=== PATIENT | female | born 1980 | race Caucasian/White ===

== ENCOUNTER 2016-10-28 21:02 | Emergency (ER) | payer OTHER ==
[2016-10-28 21:11] VITALS: BP 110/66; PULSE 80; TEMP 98.1; BMI 27.9
[2016-10-28] MEDS ORDERED: SODIUM PHOSPHATE/NA BIPHOS 133 ML ENEMA PR ONE (21:58)
--- NOTE | 2016-10-28 21:59 | PDOC ---
History of Present Illness - General Chief Complaint: Constipation Stated Complaint: PAIN Time Seen by Provider: 10/28/16 21:35 - History of Present Illness Initial Comments: 10/28/16 21:56 36 year old female c/o rectal pain and hard stool unable to defecate x 2 days. patient tried exlax and milk of magnesia at home without relief. history of hemorrhoids. Past History - Past Medical History Allergies/Adverse Reactions: Allergies Allergy/AdvReac Type Severity Reaction Status Date / Time No Known Allergies Allergy Verified 10/28/16 21:07 Home Medications: Ambulatory Orders Hydrocortisone Acetate [Anusol Hc Suppository -] 25 mg RC DAILY #14 supp.rect Polyethylene Glycol 3350 [Miralax (For Daily Use) -] 17 gm PO DAILY #1 bottle Anemia: No Asthma: No Cancer: No Cardiac Disorders: No CVA: No COPD: No CHF: No Dementia: No Diabetes: No GI Disorders: No Disorders: No HTN: No Hypercholesterolemia: No Kidney Stones: Yes Liver Disease: No Seizures: No Thyroid Disease: No - Surgical History Abdominal Surgery: Yes (tubal ligation) Appendectomy: No Cardiac Surgery: No Cholecystectomy: No Lung Surgery: No Neurologic Surgery: No Orthopedic Surgery: No - Immunization History Td Vaccination: No Immunization Up to Date: No (no flu vaccine) - Psycho/Social/Smoking Cessation Hx Anxiety: No Suicidal Ideation: No Smoking Status: Yes Smoking History: Current some day smoker Have you smoked in the past 12 months: Yes Number of Cigarettes Smoked Daily: 10 If you are a former smoker, when did you quit?: 2010 Cigars Per Day: 0 Information on smoking cessation initiated: No 'Breaking Loose' booklet given: 12/29/15 Hx Alcohol Use: No Drug/Substance Use Hx: No Substance Use Type: None Hx Substance Use Treatment: No Review of Systems - Review of Systems Able to Perform ROS?: Yes Is the patient limited Japanese proficient: No ABD/GI: Yes: Constipated : Yes: Other (hemorrhoids) *Physical Exam - Vital Signs Last Vital Signs Temp Pulse Resp BP Pulse Ox 98.1 F 80 16 110/66 98 10/28/16 21:09 10/28/16 21:09 10/28/16 21:09 10/28/16 21:10/28/16 21:09 - Physical Exam General Appearance: Yes: Appropriately Dressed Gastrointestinal/Abdominal: positive: Normal Bowel Sounds, Soft. negative: Tender Rectal Exam: positive: heme negative stool, other (hard stool in rectal cavity. no external hemorrhoid noted) Extremity: positive: Normal Capillary Refill, Normal Inspection, Normal Range of Motion Integumentary: positive: Normal Color, Dry, Warm Neurologic: positive: Fully Oriented, Alert *DC/Admit/Observation/Transfer Diagnosis at time of Disposition: Constipation Qualifiers: Constipation type: slow transit constipation Qualified Code(s): K59.01 - Slow transit constipation Hemorrhoids Qualifiers: Hemorrhoid type: unspecified Qualified Code(s): K64.9 - Unspecified hemorrhoids - Discharge Dispostion Disposition: HOME - Prescriptions Prescriptions: Hydrocortisone Acetate [Anusol Hc Suppository -] 25 mg RC DAILY #14 supp.rect Polyethylene Glycol 3350 [Miralax (For Daily Use) -] 17 gm PO DAILY #1 bottle - Referrals Referrals: Diana Car MD [Primary Care Provider] - 2 Days - Patient Instructions Printed Discharge Instructions: DI for Constipation Additional Instructions: drink plenty of fluids and high fiber diet. take miralax as prescribed. anusol insert as prescribed. follow up with your doctor as soon as possible.
--- NOTE | 2016-10-28 22:45 | PDOC ---
*Physical Exam - Vital Signs Last Vital Signs Temp Pulse Resp BP Pulse Ox 98.1 F 80 16 110/66 98 10/28/16 21:09 10/28/16 21:09 10/28/16 21:09 10/28/16 21:09 10/28/16 21:09 ED Treatment Course - Medications Given in the ED: ED Medications Discontinued Medications Generic Name Dose Route Start Last Admin Trade Name Freq PRN Reason Stop Dose Admin Sodium Phosphate 133 ml 10/28/16 21:58 10/28/16 22:08 Fleet Adult Rectal Enema - HI 10/28/16 21:59 133 ml ONCE ONE Administration Medical Decision Making - Medical Decision Making 10/28/16 22:45 agree with care from KAYLEY anderson
[2016-10-28 22:53] LABS: URINE APPEARANCE CLEAR; URINE BILIRUBIN NEGATIVE (NEGATIVE); URINE BLOOD NEGATIVE (NEGATIVE); URINE COLOR LTYELLOW; URINE GLUCOSE (UA) NEGATIVE (NEGATIVE); URINE KETONE NEGATIVE (NEGATIVE); URINE LEUK ESTERASE NEGATIVE (NEGATIVE); URINE NITRITE NEGATIVE (NEGATIVE); URINE PROTEIN NEGATIVE (NEGATIVE); URINE UROBILINOGEN NEGATIVE mg/dL (0.2-1.0)
== END 2016-10-28 23:41 | disposition home or self-care (01) ==
LOC: JERFT 21:02 → JER 21:02
DX: K59.01 Slow transit constipation (principal); K64.9 Unspecified hemorrhoids; F17.210 Nicotine dependence, cigarettes, uncomplicated
CPT/HCPCS: 81003; 99282-25

== ENCOUNTER 2017-05-01 15:46 | Emergency (ER) | payer OTHER ==
[2017-05-01 15:58] VITALS: BP 111/72; PULSE 86; TEMP 98.3; BMI 28.9
[2017-05-01] MEDS ORDERED: KETOROLAC TROMETHAMINE 60 MG/2 ML VIAL IM ONE (16:42)
[2017-05-01] MEDS ORDERED: diazePAM 5 MG TABLET PO ONE (16:42)
[2017-05-01] MEDS ORDERED: KETOROLAC TROMETHAMINE 60 MG/2 ML VIAL ONE (16:51)
[2017-05-01] MEDS ORDERED: diazePAM 5 MG TABLET ONE (16:51)
--- NOTE | 2017-05-01 17:00 | PDOC ---
History of Present Illness - General Chief Complaint: Back Pain Stated Complaint: BACK PAIN Time Seen by Provider: 05/01/17 16:25 History Source: Patient Exam Limitations: No Limitations - History of Present Illness Initial Comments: 05/01/17 16:51 CHIEF COMPLAINT: Mid back pain HISTORY OF PRESENT ILLNESS: Patient is a 36-year-old female, no significant medical history sense with mid back pain and spasm for 1 week was seen by a chiropractor, reports feeling better after stim was placed on her back. 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 Today she was out with her sister after turning spasm started again. Pain is reproducible only with movement[ Nonradiating pain, no neurosensory deficits, no bowel or bladder difficulty incontinence or urinary retention, no saddle anesthesia, no footdrop. No history of IVDU or history of cancer. ] REVIEW OF SYSTEMS: GENERAL: Afebrile, denies any weakness RESPIRATORY: No cough, wheezing, or hemoptysis. CARDIAC: No chest pain or shortness of breath MUSCULOSKELETAL: Pain to generalized lower back. No point tenderness. Mid bilateral thoracic back pain.] SKIN : No erythema, no bruising, no deformity. GI/: Denies any abdominal pain, no urinary difficulty, incontinence or urinary retention. RECTAL: Denies any difficulty this A.m. NEUROLOGICAL: Denies any numbness or tingling. No neurosensory deficits. PHYSICAL EXAM: GENERAL: The patient is awake, alert, and fully oriented, in no acute distress. RESPIRATORY: Lungs clear bilaterally, no rhonchi wheezes or crackles CARDIAC: S1-S2 audible, no murmur rub or gallop MUSCULOSKELETAL: Pain to thoracic back on palpation, nonradiating, no tingling or sensory deficit. Less than 2 second cap refill, +4 popliteal and pedal pulses. GI/: Abdomen soft, nontender, nondistended. No rebound tenderness. No masses palpable. MUSCULOSKELETAL: No spinal point tenderness. Normal reflexive and no deficits to sensation or strength. RECTAL: [Deferred patient with no neurological findings] SKIN: Warm, Dry, normal turgor, no erythema, no edema no bruising. Past History - Past Medical History Allergies/Adverse Reactions: Allergies Allergy/AdvReac Type Severity Reaction Status Date / Time No Known Allergies Allergy Verified 05/01/17 16:37 Home Medications: Ambulatory Orders Cyclobenzaprine HCl [Flexeril 10 mg] 10 mg PO BID PRN #30 tablet MDD 2 05/01/17 Naproxen [Naprosyn] 500 mg PO BID #20 tablet 05/01/17 Anemia: No Asthma: No Cancer: No Cardiac Disorders: No CVA: No COPD: No CHF: No Dementia: No Diabetes: No GI Disorders: No Disorders: No HTN: No Hypercholesterolemia: No Kidney Stones: Yes Liver Disease: No Seizures: No Thyroid Disease: No - Surgical History Abdominal Surgery: Yes (tubal ligation) Appendectomy: No Cardiac Surgery: No Cholecystectomy: No Lung Surgery: No Neurologic Surgery: No Orthopedic Surgery: No - Immunization History Td Vaccination: No Immunization Up to Date: No (no flu vaccine) - Suicide/Smoking/Psychosocial Hx Smoking Status: Yes Smoking History: Current every day smoker Have you smoked in the past 12 months: Yes Number of Cigarettes Smoked Daily: 10 If you are a former smoker, when did you quit?: 2010 Cigars Per Day: 0 Information on smoking cessation initiated: No 'Breaking Loose' booklet given: 12/29/15 Hx Alcohol Use: No Drug/Substance Use Hx: No Substance Use Type: None Hx Substance Use Treatment: No *Physical Exam - Vital Signs Last Vital Signs Temp Pulse Resp BP Pulse Ox 98.3 F 86 18 111/72 99 05/01/17 15:52 05/01/17 15:52 05/01/17 15:52 05/01/17 15:52 05/01/17 15:52 ED Treatment Course - LABORATORY CBC & Chemistry Diagram: 05/01/17 18:40 05/01/17 18:40 Medical Decision Making - Medical Decision Making 05/01/17 17:00 A/P: Patient with upper thoracic back pain and spasm. Denies any respiratory difficulty. No shortness of breath. 05/01/17 17:37 Laboratory Results - last 24 hr 05/01/17 16:55 Urine Color Yellow Urine Appearance Cloudy Urine pH 7.0 Ur Specific [place] 1.014 Urine Protein Negative Urine Glucose (UA) Negative Urine Ketones Negative Urine Blood Negative Urine Nitrite Negative Urine Bilirubin Negative Urine Urobilinogen Negative Ur Leukocyte Esterase Negative Toradol and Valium given, will reevaluate 05/01/17 20:06 Laboratory Results - last 24 hr 05/01/17 05/01/17 05/01/17 16:55 18:40 18:40 WBC 8.3 RBC 4.61 Hgb 13.6 Hct 40.9 MCV 88.6 MCH 29.5 MCHC 33.3 RDW 13.5 Plt Count 187 MPV 9.3 Neutrophils % 62.2 Lymphocytes % 27.8 Monocytes % 6.4 Eosinophils % 2.5 Basophils % 1.1 D-Dimer 274 Sodium Potassium Chloride Carbon Dioxide Anion Gap BUN Creatinine Creat Clearance w eGFR Random Glucose Calcium Total Bilirubin AST ALT Alkaline Phosphatase Total Protein Albumin Urine Color Yellow Urine Appearance Cloudy Urine pH 7.0 Ur Specific [place] 1.014 Urine Protein Negative Urine Glucose (UA) Negative Urine Ketones Negative Urine Blood Negative Urine Nitrite Negative Urine Bilirubin Negative Urine Urobilinogen Negative Ur Leukocyte Esterase Negative 05/01/17 18:40 WBC RBC Hgb Hct MCV MCH MCHC RDW Plt Count MPV Neutrophils % Lymphocytes % Monocytes % Eosinophils % Basophils % D-Dimer Sodium 141 Potassium 4.0 Chloride 107 Carbon Dioxide 28 Anion Gap 6 L BUN 14 Creatinine 0.7 Creat Clearance w eGFR > 60 Random Glucose 87 Calcium 8.5 Total Bilirubin 0.4 D AST 7 L ALT 19 Alkaline Phosphatase 58 Total Protein 6.8 Albumin 4.0 Urine Color Urine Appearance Urine pH Ur Specific [place] Urine Protein Urine Glucose (UA) Urine Ketones Urine Blood Urine Nitrite Urine Bilirubin Urine Urobilinogen Ur Leukocyte Esterase Wet read of x-rays negative for acute cardiopulmonary disease. D-dimer is unremarkable. Discharge patient home on Naprosyn and Flexeril, follow-up with her doctor. Patient reports she feels better after medication. I discussed the physical exam findings, ancillary test results and final diagnoses with the patient. I answered all of the patient's questions. The patient was satisfied with the care received and felt comfortable with the discharge plan and treatment plan. The patient will call in 24 hours to arrange follow-up and will return to the Emergency Department with any new, persistent or worsening symptoms. 05/01/17 20:15 *DC/Admit/Observation/Transfer Diagnosis at time of Disposition: Thoracic back pain Qualifiers: Chronicity: acute Back pain laterality: bilateral Qualified Code(s): M54.6 - Pain in thoracic spine - Discharge Dispostion Disposition: HOME Condition at time of disposition: Good Admit: No - Prescriptions Prescriptions: Cyclobenzaprine HCl [Flexeril 10 mg] 10 mg PO BID PRN #30 tablet MDD 2 PRN Reason: Pain Naproxen [Naprosyn] 500 mg PO BID #20 tablet - Referrals Referrals: Florence Sage [Primary Care Provider] - - Patient Instructions Additional Instructions: 1. Please return to the emergency department with any numbness, tingling, weakness, numbness or tingling to groin or legs, or loss of bowel or bladder function. 2. Use pain medication as ordered. 3. Please is to followup in the office of your doctor. 4. heat 5. Refrain from lifting anything above 10 pounds, until pain resolved. - Post Discharge Activity Forms/Work/School Notes: Back to Work
[2017-05-01 17:11] LABS: URINE APPEARANCE CLOUDY; URINE BILIRUBIN NEGATIVE (NEGATIVE); URINE BLOOD NEGATIVE (NEGATIVE); URINE COLOR YELLOW; URINE GLUCOSE (UA) NEGATIVE (NEGATIVE); URINE KETONE NEGATIVE (NEGATIVE); URINE LEUK ESTERASE NEGATIVE (NEGATIVE); URINE NITRITE NEGATIVE (NEGATIVE); URINE PROTEIN NEGATIVE (NEGATIVE); URINE UROBILINOGEN NEGATIVE mg/dL (0.2-1.0)
[2017-05-01] MEDS ORDERED: CYCLOBENZAPRINE HCL 10 MG TABLET (FP) ONE (18:30)
[2017-05-01 18:52] LABS: BASO % 1.1 % (0-2.0); EOS % 2.5 % (0-4.5); HEMATOCRIT 40.9 % (32.4-45.2); HEMOGLOBIN 13.6 GM/dL (10.7-15.3); LYMPH % 27.8 % (8-40); MCH 29.5 pg (25.7-33.7); MCHC 33.3 g/dl (32.0-36.0); MEAN CELL VOLUME 88.6 fl (80-96); MEAN PLT VOLUME 9.3 fl (7.5-11.1); MONO % 6.4 % (3.8-10.2); NEUT % 62.2 % (42.8-82.8); PLATELET COUNT 187 K/MM3 (134-434); RBC 4.61 M/mm3 (3.60-5.2); RDW 13.5 % (11.6-15.6); WHITE BLOOD COUNT 8.3 K/mm3 (4.0-10.0)
[2017-05-01 19:22] LABS: ALK PHOS 58 U/L (45-117); ANION GAP 6 (8-16); BILIRUBIN,TOTAL 0.4 mg/dL (0.2-1.0); BLOOD UREA NITROGEN 14 mg/dL (7-18); CALCIUM 8.5 mg/dL (8.5-10.1); CHLORIDE 107 mmol/L (98-107); CO2 28 mmol/L (21-32); CREATININE 0.7 mg/dL (0.55-1.02); GLUCOSE,RANDOM 87 mg/dL (74-106); SGOT/AST 7 U/L (15-37); SGPT/ALT 19 U/L (12-78); SODIUM 141 mmol/L (136-145); TOT PROT 6.8 g/dl (6.4-8.2)
== END 2017-05-01 20:20 | disposition home or self-care (01) ==
LOC: JERFT 15:46
PROC: 3E0233Z Introduction of Anti-inflammatory into Muscle, Percutaneous Approach (ICD-10-PCS; principal; 2017-05-01)
DX: M54.6 Pain in thoracic spine (principal); M62.830 Muscle spasm of back
CPT/HCPCS: 36415; 71046-TC-FY; 80053; 81003; 85025; 85379; 96372; 99281-25

== ENCOUNTER 2017-05-16 15:08 | Emergency (ER) | payer OTHER ==
[2017-05-16 15:28] VITALS: BMI 29.1
--- NOTE | 2017-05-16 15:46 | PDOC ---
History of Present Illness - General Chief Complaint: Pain, Acute Stated Complaint: FLANK PAIN Time Seen by Provider: 05/16/17 15:38 - History of Present Illness Initial Comments: 05/16/17 16:35 The patient is a 36 year old female with a history of back pain and kidney stones who presents for evaluation of right sided flank pain. The patient reports acute onset of severe sharp right sided flank pain 1 day ago unresponsive to heating packs and her muscle stimulator prompting her presentation to the ED today. She otherwise denies fevers, chills, SOB, chest pain, nausea, vomiting, abdominal pain, or changes with urination or bowel movements. She denies any pain with urination or blood in her urine as well. Past History - Past Medical History Allergies/Adverse Reactions: Allergies Allergy/AdvReac Type Severity Reaction Status Date / Time No Known Allergies Allergy Verified 05/16/17 15:20 Home Medications: Ambulatory Orders Tamsulosin HCl [Flomax] 0.4 mg PO DAILY #5 cap.er.24h 05/16/17 Anemia: No Asthma: No Cancer: No Cardiac Disorders: No CVA: No COPD: No CHF: No Dementia: No Diabetes: No GI Disorders: No Disorders: No HTN: No Hypercholesterolemia: No Kidney Stones: Yes Liver Disease: No Seizures: No Thyroid Disease: No - Surgical History Abdominal Surgery: Yes (tubal ligation) Appendectomy: No Cardiac Surgery: No Cholecystectomy: No Lung Surgery: No Neurologic Surgery: No Orthopedic Surgery: No - Immunization History Td Vaccination: No Immunization Up to Date: No (no flu vaccine) - Suicide/Smoking/Psychosocial Hx Smoking Status: Yes Smoking History: Current some day smoker Have you smoked in the past 12 months: Yes Number of Cigarettes Smoked Daily: 10 If you are a former smoker, when did you quit?: 2010 Cigars Per Day: 0 Information on smoking cessation initiated: No 'Breaking Loose' booklet given: 12/29/15 Hx Alcohol Use: No Drug/Substance Use Hx: No Substance Use Type: None Hx Substance Use Treatment: No Review of Systems - Review of Systems Comments:: 05/16/17 16:39 Constitutional: No fevers, chills, fatigue, malaise HEENT: No Rhinorrhea, nasal congestion, visual changes Cardiovascular: No chest pain, syncope, palpitations, lightheadedness Respiratory: No Cough, SOB, Hemoptysis, Gastrointestinal: No Abdominal pain, Nausea, Vomiting, Constipation, Diarrhea, Melena Genitourinary: Right sided flank pain. No Dysuria, Frequency, Urgency, Hesitancy, Hematuria, Musculoskeletal: No Myalgia, arthralgia Skin: No rashes, itching, bruising, pallor Neurologic: No Headache, Dizziness, Numbness, Weakness, or Tingling Psychiatric: No Hallucinations. No SI or HI *Physical Exam - Vital Signs Last Vital Signs Temp Pulse Resp BP Pulse Ox 97.9 F 93 H 19 170/100 96 05/16/17 15:20 05/16/17 15:20 05/16/17 15:20 05/16/17 15:20 05/16/17 15:20 - Physical Exam Comments: 05/16/17 16:40 General Appearance: Nourished. In Apparent Distress HEENT: EOMI, RONN. No Pharyngeal Erythema, Tonsillar Exudate, Tonsillar Erythema Neck: No Cervical Lymphadenopathy Respiratory/Chest: Lungs Clear, Normal Breath Sounds. No Crackles, Rales, Rhonchi, Wheezing Cardiovascular: Regular Rhythm, Regular Rate. No Murmur, Gallops, Rubs Gastrointestinal/Abdominal: Normal Bowel Sounds, Soft. No Guarding, Rebound, Tenderness Musculoskeletal: Right sided CVA Tenderness. No L CVA Tenderness Extremity: Normal Capillary Refill Integumentary: Normal Color, Dry, Warm Neurologic: Fully Oriented, Alert, Normal Mood/Affect, Normal Response, ED Treatment Course - LABORATORY CBC & Chemistry Diagram: 05/16/17 16:03 05/16/17 16:03 Medical Decision Making - Medical Decision Making 05/16/17 16:41 The patient is a 36 year old female with a history of back pain and kidney stones who presents for evaluation of right sided flank pain. Differential includes but is not limited to: Kidney stones, pyelonephritis, UTI, musculoskeletal, infectious, metabolic derangement. Given the patient's severe flank pain, it is possible that her symptoms are due to kidney stones or pyelonephritis. We will obtain a cbc, cmp, lipase, UA, serum preg, urine preg, spiral renal CT to evaluate for possible etiologies. We will treat with 1mg of diluadid in the meantime. We will continue to monitor and reassess. 05/16/17 19:03 CBC, cmp, lipase, ua are unremarkable. Patient is pending official read from spiral renal CT. Signed out to night team. *DC/Admit/Observation/Transfer Diagnosis at time of Disposition: Nephrolithiasis - Discharge Dispostion Disposition: HOME Condition at time of disposition: Stable - Prescriptions Prescriptions: Tamsulosin HCl [Flomax] 0.4 mg PO DAILY #5 cap.er.24h - Referrals Referrals: lForence Sage [Primary Care Provider] - - Patient Instructions Additional Instructions: You were in the emergency room due to kidney stones. While you were here, you had a CT scan done which showed that the stones were non-obstructing. We are sending you home with Flomax - this will help your urine flow. Please take one a day, for the next five days. We would also like you to strain your urine, to check for the stones. For pain control, you can take alternate tylenol and motrin, as directed on the package. We recommend you also drink plenty of fluids and rest, as this should help your condition. Please follow up with your primary care doctor in 1 week. We hope you feel better soon. If you develop fever, chills, or severe abdominal pain, please come back to the ER since this may mean that your stones have become infected. - Post Discharge Activity
[2017-05-16] MEDS ORDERED: HYDROmorphone HCL CARPU-JECT 1 MG/1 ML DISP.SYRIN IVPUSH ONE (15:55)
[2017-05-16] MEDS ORDERED: HYDROmorphone HCl/Pf 2 MG/ML VIAL - FOR OR PYXIS USE ONE (16:01)
[2017-05-16 16:17] LABS: BASO % 0.8 % (0-2.0); EOS % 1.4 % (0-4.5); HEMATOCRIT 43.8 % (32.4-45.2); HEMOGLOBIN 14.7 GM/dL (10.7-15.3); LYMPH % 27.4 % (8-40); MCH 29.2 pg (25.7-33.7); MCHC 33.5 g/dl (32.0-36.0); MEAN CELL VOLUME 87.2 fl (80-96); MONO % 6.6 % (3.8-10.2); NEUT % 63.8 % (42.8-82.8); PLATELET COUNT 241 K/MM3 (134-434); RBC 5.03 M/mm3 (3.60-5.2); RDW 13.5 % (11.6-15.6); WHITE BLOOD COUNT 11.2 K/mm3 (4.0-10.0)
--- NOTE | 2017-05-16 16:18 | PDOC ---
Attending Attestation - Resident Resident Name: Napoleon Templeton - ED Attending Attestation I have performed the following: I have examined & evaluated the patient, The case was reviewed & discussed with the resident, I agree w/resident's findings & plan, Exceptions are as noted - HPI HPI: 05/16/17 16:12 36 year old female c/ pmh of kidney stones p/w R flank pain since yesterday. Initially, she thought that this was a back spasm. Was using heat packs but wasn 't getting better. Earlier today developed a very "strong" R flank pain, but denies abdominal pain, nausea, vomiting, dysuria, hematuria. Pt unsure if this is her back spasm or kidney stones. Denies fevers, cihlls. - Physicial Exam PE: 05/16/17 16:17 GENERAL: Awake, alert, and fully oriented. Uncomfortable appearing. HEAD: No signs of trauma EYES: PERRLA, EOMI, sclera anicteric, conjunctiva clear ENT: Auricles normal inspection, hearing grossly normal, nares patent NECK: Normal ROM, supple, no lymphadenopathy, JVD, or masses LUNGS: Breath sounds equal, clear to auscultation bilaterally. No wheezes, and no crackles HEART: Regular rate and rhythm, normal S1 and S2, no murmurs, rubs or gallops ABDOMEN: Soft, nontender, normoactive bowel sounds. No guarding, no rebound. No masses. R sided CVA tenderness. EXTREMITIES: Normal range of motion, no edema. No clubbing or cyanosis. No cords, erythema, or tenderness NEUROLOGICAL: Cranial nerves II through XII grossly intact. Normal speech. SKIN: Warm, Dry, normal turgor, no rashes or lesions noted. - Medical Decision Making 05/16/17 16:18 Vital Signs Temp Pulse Resp BP Pulse Ox 97.9 F 93 H 19 170/100 96 05/16/17 15:20 05/16/17 15:20 05/16/17 15:20 05/16/17 15:20 05/16/17 15:20 Pt noted with R flank pain. Will r/o kidney stones. Differential includes pylenephritis, colitis, appendicitis. CT abdomen and pelvis. Labs, ua/uc, serum preg. Reassess.
[2017-05-16 16:51] LABS: ALBUMIN 4.6 g/dl (3.4-5.0); ALK PHOS 68 U/L (45-117); ANION GAP 9 (8-16); BILIRUBIN,TOTAL 0.3 mg/dL (0.2-1.0); BLOOD UREA NITROGEN 13 mg/dL (7-18); CALCIUM 8.9 mg/dL (8.5-10.1); CHLORIDE 110 mmol/L (98-107); CO2 22 mmol/L (21-32); CREATININE 0.8 mg/dL (0.55-1.02); GLUCOSE,RANDOM 89 mg/dL (74-106); SGOT/AST 9 U/L (15-37); SGPT/ALT 14 U/L (12-78); SODIUM 141 mmol/L (136-145); TOT PROT 7.6 g/dl (6.4-8.2)
[2017-05-16] MEDS ORDERED: KETOROLAC TROMETHAMINE 30 MG/1 ML VIAL IVPUSH ONE (16:58)
[2017-05-16 17:11] LABS: URINE APPEARANCE CLEAR; URINE BILIRUBIN NEGATIVE (NEGATIVE); URINE BLOOD 1+ (NEGATIVE); URINE COLOR LTYELLOW; URINE GLUCOSE (UA) NEGATIVE (NEGATIVE); URINE KETONE NEGATIVE (NEGATIVE); URINE LEUK ESTERASE NEGATIVE (NEGATIVE); URINE NITRITE NEGATIVE (NEGATIVE); URINE PROTEIN NEGATIVE (NEGATIVE); URINE UROBILINOGEN NEGATIVE mg/dL (0.2-1.0)
[2017-05-16 17:13] LABS: HCG,QUALITATIVE URINE NEGATIVE
[2017-05-16 17:14] LABS: EPI CELLS RARE /HPF (FEW); URINE BACTERIA RARE /hpf (NONE SEEN); URINE MUCUS RARE
[2017-05-16] MEDS ORDERED: KETOROLAC TROMETHAMINE 30 MG/1 ML VIAL ONE (17:16)
--- NOTE | 2017-05-16 19:23 | PDOC ---
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, Fully Oriented, Alert ED Treatment Course - LABORATORY CBC & Chemistry Diagram: 05/16/17 16:03 05/16/17 16:03 - ADDITIONAL ORDERS Additional order review: Laboratory Results 05/16/17 05/16/17 05/16/17 16:38 16:38 16:03 D-Dimer 154 Sodium Potassium Chloride Carbon Dioxide Anion Gap BUN Creatinine Creat Clearance w eGFR Random Glucose Calcium Total Bilirubin AST ALT Alkaline Phosphatase Total Protein Albumin Lipase 103 Serum , Qual Urine Color Ltyellow Urine Appearance Clear Urine pH 5.0 D Ur Specific [place] 1.014 Urine Protein Negative Urine Glucose (UA) Negative Urine Ketones Negative Urine Blood 1+ H Urine Nitrite Negative Urine Bilirubin Negative Urine Urobilinogen Negative Ur Leukocyte Esterase Negative Urine WBC (Auto) 3 Urine RBC (Auto) 3 Ur Epithelial Cells Rare Urine Bacteria Rare Urine Mucus Rare Urine HCG, Qual Negative 05/16/17 05/16/17 16:03 16:03 D-Dimer Sodium 141 Potassium 4.0 Chloride 110 H Carbon Dioxide 22 Anion Gap 9 BUN 13 Creatinine 0.8 Creat Clearance w eGFR > 60 Random Glucose 89 Calcium 8.9 Total Bilirubin 0.3 D AST 9 L ALT 14 Alkaline Phosphatase 68 Total Protein 7.6 Albumin 4.6 Lipase Serum , Qual Negative Urine Color Urine Appearance Urine pH Ur Specific [place] Urine Protein Urine Glucose (UA) Urine Ketones Urine Blood Urine Nitrite Urine Bilirubin Urine Urobilinogen Ur Leukocyte Esterase Urine WBC (Auto) Urine RBC (Auto) Ur Epithelial Cells Urine Bacteria Urine Mucus Urine HCG, Qual 05/16/17 16:03 RBC 5.03 MCV 87.2 MCHC 33.5 RDW 13.5 MPV 9.0 Neutrophils % 63.8 Lymphocytes % 27.4 Monocytes % 6.6 Eosinophils % 1.4 Basophils % 0.8 - Medications Given in the ED: ED Medications Discontinued Medications Generic Name Dose Route Start Last Admin Trade Name Jennifer PRN Reason Stop Dose Admin Hydromorphone HCl 1 mg 05/16/17 15:55 05/16/17 16:03 Dilaudid Injection - IVPUSH 05/16/17 15:56 1 mg ONCE ONE Administration Ketorolac Tromethamine 30 mg 05/16/17 16:58 05/16/17 17:16 Toradol Injection - IVPUSH 05/16/17 16:59 30 mg ONCE ONE Administration Medical Decision Making - Medical Decision Making 05/16/17 19:21 Taking over care from Dr. Templeton Pt states that her pain is currently a 7/10, compared to 10/10 from prior. wreath machine tender to palpation R flank. CT results pending 05/16/17 21:01 CT abdomen/pelvis: no hydronephrosis. No stones in ureters or within the bladder. Multiple bilateral nonobstructing renal stones pt for d/c - will recommend increased fluids, flomax, pain control, urine straining *DC/Admit/Observation/Transfer Diagnosis at time of Disposition: Nephrolithiasis - Discharge Dispostion Disposition: HOME Condition at time of disposition: Stable Admit: No - Prescriptions Prescriptions: Tamsulosin HCl [Flomax] 0.4 mg PO DAILY #5 cap.er.24h - Referrals Referrals: Florence Sage [Primary Care Provider] - - Patient Instructions Additional Instructions: You were in the emergency room due to kidney stones. While you were here, you had a CT scan done which showed that the stones were non-obstructing. We are sending you home with Flomax - this will help your urine flow. Please take one a day, for the next five days. We would also like you to strain your urine, to check for the stones. For pain control, you can take alternate tylenol and motrin, as directed on the package. We recommend you also drink plenty of fluids and rest, as this should help your condition. Please follow up with your primary care doctor in 1 week. We hope you feel better soon. If you develop fever, chills, or severe abdominal pain, please come back to the ER since this may mean that your stones have become infected. - Post Discharge Activity
[2017-05-17 02:27] VITALS: BP 120/80; PULSE 72; TEMP 98.9
== END 2017-05-16 21:46 | disposition home or self-care (01) ==
LOC: JER 15:08
PROC: 3E033NZ Introduction of Analgesics, Hypnotics, Sedatives into Peripheral Vein, Percutaneous Approach (ICD-10-PCS; principal; 2017-05-16)
PROC: 3E0333Z Introduction of Anti-inflammatory into Peripheral Vein, Percutaneous Approach (ICD-10-PCS; 2017-05-16)
DX: N20.0 Calculus of kidney (principal); Z87.442 Personal history of urinary calculi; F17.210 Nicotine dependence, cigarettes, uncomplicated
CPT/HCPCS: 36415; 74176; 80053; 81003; 81015; 83690; 84703; 85025; 85379; 87086; 96374; 96375; 99285-25

== ENCOUNTER 2018-01-26 23:31 | Emergency (ER) | payer OTHER ==
[2018-01-26 23:46] VITALS: BP 137/88; PULSE 76; TEMP 98.1; BMI 29.6
[2018-01-26] MEDS ORDERED: FAMOTIDINE 20 MG/50 ML IVPB 20 MG/50 ML MG IVPB ONE ×2 (23:52→23:58)
[2018-01-26] MEDS ORDERED: predniSONE 20 MG TABLET (UD) PO ONE (23:52)
[2018-01-26] MEDS ORDERED: SODIUM CHLORIDE 1,000 ML IV STA (23:52)
--- NOTE | 2018-01-26 23:53 | PDOC ---
History of Present Illness - General History Source: Patient Exam Limitations: No Limitations - History of Present Illness Initial Comments: 01/27/18 00:10 The patient is a 37 year old female, with a significant past medical history of kidney stones, who presents to the emergency department with, an allergic reaction. As per patient, she had shrimp scampi 3 hours prior to arrival and 5 minutes later began to experience itching in her throat and a rash across her chest. Patient notes having seafood in the past without a similar reaction. She took 25mg of Benadryl, without relief prompting her visit to the ER. She denies any lip or tongue swelling. She denies any difficulty breathing. She denies recent fevers, chills, headache or dizziness. She denies recent nausea, vomit, diarrhea or constipation. She denies recent dysuria, frequency, urgency or hematuria. She denies recent chest pain. Past surgical history: Lithotripsy x4. Social History: Smoker. <Rose Purvis - Last Filed: 01/27/18 00:10> <Radha Cruz - Last Filed: 01/27/18 01:25> - General Chief Complaint: Allergic Reaction Stated Complaint: ALLERGIC REACTION Time Seen by Provider: 01/26/18 23:52 Past History <Rose Purvis - Last Filed: 01/27/18 00:10> - Past Medical History Anemia: No Asthma: No Cancer: No Cardiac Disorders: No CVA: No COPD: No CHF: No Dementia: No Diabetes: No GI Disorders: No Disorders: No HTN: No Hypercholesterolemia: No Kidney Stones: Yes Liver Disease: No Seizures: No Thyroid Disease: No - Surgical History Abdominal Surgery: Yes (tubal ligation) Appendectomy: No Cardiac Surgery: No Cholecystectomy: No Lung Surgery: No Neurologic Surgery: No Orthopedic Surgery: No - Immunization History Td Vaccination: No Immunization Up to Date: No (no flu vaccine) - Suicide/Smoking/Psychosocial Hx Smoking Status: Yes Smoking History: Current some day smoker Have you smoked in the past 12 months: Yes Number of Cigarettes Smoked Daily: 10 If you are a former smoker, when did you quit?: 2010 Cigars Per Day: 0 Information on smoking cessation initiated: Yes 'Breaking Loose' booklet given: 12/29/15 Hx Alcohol Use: No Drug/Substance Use Hx: No Substance Use Type: None Hx Substance Use Treatment: No <Radha Cruz - Last Filed: 01/27/18 01:25> - Past Medical History Allergies/Adverse Reactions: Allergies Allergy/AdvReac Type Severity Reaction Status Date / Time No Known Allergies Allergy Verified 05/16/17 15:20 Home Medications: Ambulatory Orders Tamsulosin HCl [Flomax] 0.4 mg PO DAILY #5 cap.er.24h 05/16/17 Epinephrine [Epipen] 0.3 mg IJ ONCE PRN #1 auto.injct 01/27/18 Famotidine [Pepcid] 20 mg PO DAILY #4 tablet 01/27/18 predniSONE [Deltasone -] 40 mg PO DAILY #8 tablet 01/27/18 Review of Systems - Review of Systems Able to Perform ROS?: Yes Comments:: 01/27/18 00:10 GENERAL/CONSTITUTIONAL: No fever or chills. No weakness. +HEAD, EYES, EARS, NOSE AND THROAT: Itchy throat. No change in vision. No ear pain or discharge. No sore throat. GASTROINTESTINAL: No nausea, vomiting, diarrhea or constipation. GENITOURINARY: No dysuria, frequency, or change in urination. CARDIOVASCULAR: No chest pain or shortness of breath. RESPIRATORY: No cough, wheezing, or hemoptysis. MUSCULOSKELETAL: No joint or muscle swelling or pain. No neck or back pain. SKIN: No rash NEUROLOGIC: No headache, vertigo, loss of consciousness, or change in strength/ sensation. ENDOCRINE: No increased thirst. No abnormal weight change. HEMATOLOGIC/LYMPHATIC: No anemia, easy bleeding, or history of blood clots. +ALLERGIC/IMMUNOLOGIC: Urticarial rash across the chest. All Other Systems: Reviewed and Negative <Rose Purvis - Last Filed: 01/27/18 00:10> *Physical Exam - Vital Signs Last Vital Signs Temp Pulse Resp BP Pulse Ox 98.1 F 76 20 137/88 96 01/26/18 23:37 01/26/18 23:37 01/26/18 23:37 01/26/18 23:37 01/26/18 23:37 - Physical Exam Comments: 01/27/18 00:10 Constitutional: Awake, alert, oriented. No acute distress. Head: Normocephalic. Atraumatic Eyes: PERRL. EOMI. Conjunctivae are not pale. ENT: Mucous membranes are moist and intact. Posterior pharynx without exudates or erythema. Uvula midline. Neck: No bruits. Supple. Full ROM. No lymphadenopathy. Cardiovascular: Regular rate. Regular rhythm. S1, S2 regular. Distal pulses are 2+ and symmetric. Pulmonary/Chest: No evidence of respiratory distress. Clear to auscultation bilaterally No wheezing, rales or rhonchi. Abdominal: Soft and non-distended. There is no tenderness. No rebound, guarding or rigidity. No organomegaly. No palpable masses. Good bowel sounds. Back: No CVA tenderness. Musculoskeletal: No edema. No cyanosis. No clubbing. Full range of motion in all extremities. No calf tenderness. Radial/pedal pulses are intact and 2+ bilaterally +Skin: Urticarial rash diffusely across the chest. Neurological: Alert and oriented to person, place, and time. Cranial nerves II -XII are grossly intact. Normal speech. Strength is grossly symmetric. No sensory deficits. Psychiatric: Good eye contact. Normal interaction, affect and behavior. 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 <Rose Purvis - Last Filed: 01/27/18 00:10> - Discharge Dispostion Decision to Admit order: No - Attestations Physician Attestion: 01/27/18 00:09 I, Dr. Radha Cruz DO, attest that this document has been prepared under my direction and personally reviewed by me in its entirety. I further attest, that it accurately reflects all work, treatment, procedures and medical decision -making performed by me. <Radha Cruz - Last Filed: 01/27/18 01:25> Diagnosis at time of Disposition: Allergic reaction - Discharge Dispostion Disposition: HOME Condition at time of disposition: Stable - Prescriptions Prescriptions: Epinephrine [Epipen] 0.3 mg IJ ONCE PRN #1 auto.injct PRN Reason: Shortness Of Breath Famotidine [Pepcid] 20 mg PO DAILY #4 tablet predniSONE [Deltasone -] 40 mg PO DAILY #8 tablet - Referrals Referrals: Efren Randolph MD [Staff Physician] - - Patient Instructions Printed Discharge Instructions: DI for General Allergic Reactions - Post Discharge Activity Forms/Work/School Notes: Back to Work
[2018-01-26] MEDS ORDERED: methylPREDNISolone NA SUCC 125 MG/2 ML VIAL IVPB ONE (23:54)
[2018-01-26] MEDS ORDERED: methylPREDNISolone NA SUCC 125 MG/2 ML VIAL ONE (23:58)
== END 2018-01-27 01:45 | disposition home or self-care (01) ==
LOC: JER 23:31
PROC: 3E033GC Introduction of Other Therapeutic Substance into Peripheral Vein, Percutaneous Approach (ICD-10-PCS; principal; 2018-01-26)
PROC: 3E033GC Introduction of Other Therapeutic Substance into Peripheral Vein, Percutaneous Approach (ICD-10-PCS; 2018-01-26)
PROC: 3E0333Z Introduction of Anti-inflammatory into Peripheral Vein, Percutaneous Approach (ICD-10-PCS; 2018-01-26)
DX: T78.1XXA Other adverse food reactions, not elsewhere classified, initial encounter (principal)
CPT/HCPCS: 99281-25; J7030